=== PATIENT | male | born 1995 | race African-American/Black ===

== ENCOUNTER 2021-01-05 16:11 | Emergency (ER) | payer OTHER, MEDICAID, SELFPAY ==
[2021-01-05 16:33] VITALS: BP 139/81; PULSE 64; RESP 16; TEMP 37.5; O2SAT 100
[2021-01-05] MEDS: LIDOCAINE HCL 1% LOCAL INJ 20 ML VIAL IM (17:18)
[2021-01-05] MEDS: cefTRIAXone 500 MG VIAL IM (17:19)
--- NOTE | 2021-01-05 18:56 | ED.MALEGU ---
HPI - Male Genitourinary General Chief complaint: Urogenital-Male Stated complaint: STD Exposure Time Seen by Provider: 01/05/21 17:02 Source: patient and RN notes reviewed Mode of arrival: ambulatory Limitations: no limitations History of Present Illness HPI Narrative: Patient presents today complaining of possible exposure to gonorrhea. Patient was notified yesterday by a sexual partner that she was positive for gonorrhea. He first had unprotected intercourse with her on December 21, then again a few days ago. He has no symptoms. MD Complaint: possible STD exposure Related Data Allergies Allergy/AdvReac Type Severity Reaction Status Date / Time No Known Allergies Allergy Verified 01/05/21 16:40 Review of Systems Review of Systems: CONSTITUTIONAL: Denies body aches, fever, chills, or sweats. CARDIOVASCULAR: Denies chest pain, palpitations, or edema. RESPIRATORY: Denies cough or dyspnea. GASTROINTESTINAL: Denies abdominal pain, nausea, vomiting, or diarrhea. GENITOURINARY: Denies dysuria or hematuria. SKIN: Denies rash, itching, or wounds. MUSCULOSKELETAL: Denies back pain, joint pain, or myalgia. NEUROLOGIC: Denies headache, numbness, tingling, or weakness. PSYCH: Denies depression or anxiety. PMFSH Comments At time of signature, I have reviewed and agree with nursing past medical, surgical, social and family history unless otherwise noted. Please see nursing chart for further information. There is no relevant family history pertinent to the presenting complaint Exam Narrative: GENERAL: Well-appearing, well-nourished, and in no acute distress. HEAD: Normocephalic, atraumatic. EYES: EOMI. No redness or drainage. Conjunctivae normal. ENT: Mucous membranes pink and moist. NECK: Normal AROM. CHEST: No respiratory distress. : deferred EXTREMITIES: Normal range of motion. No edema. SKIN: Warm, dry, no rash. Capillary refill normal. Normal skin turgor. NEURO: No focal deficits. Alert and oriented x3. Gait steady. PSYCH: Normal affect. No signs of depression or anxiety. Course Vital Signs Vital signs: Vital Signs Temperature 99.5 F 01/05/21 16:33 Pulse Rate 64 01/05/21 16:33 Respiratory Rate 16 01/05/21 16:33 Blood Pressure 139/81 01/05/21 16:33 Pulse Oximetry 100 01/05/21 16:33 Temperature 99.5 F 01/05/21 16:33 Pulse Rate 64 01/05/21 16:33 Respiratory Rate 16 01/05/21 16:33 Blood Pressure 139/81 01/05/21 16:33 Pulse Oximetry 100 01/05/21 16:33 Reviewed. Pt has been instructed to follow up with his PCP regarding his elevated blood pressure today. MDM - Male Genitourinary Differential Diagnosis Differential diagnosis: Likely other (Gonorrhea, chlamydia, trichomonas) Lab Data Labs: Lab Results 01/05/21 Range/Units 16:33 C.trachomatis RNA (TMA) Pending N.gonorrhoeae RNA (TMA) Pending T. vaginalis Amp RNA Pending Critical Care Time Critical Care Time Critical Care Time: No Discharge Plan Discharge Clinical Impression: Contact with and (suspected) exposure to infections with a predominantly sexual mode of transmission Patient Disposition: Home, Self-Care Condition: Stable Instructions: Antibiotic Form, Gonorrhea (ED) Additional Instructions: Your urine sample has been sent off to test for gonorrhea, chlamydia, and trichomonas infections. These tests can take up to 5-7 days to come back. You will be notified by telephone if any of your tests come back positive. You have been treated with Rocephin in urgent care today to cover you for gonorrhea. Prescription for Flagyl and doxycycline has been sent to your pharmacy to cover you for trichomonas and chlamydia. If any of your test come back positive you should need no further treatment. If any of your test come back positive, you will need to notify any partners that you have, and they will need to be tested and treated. If your tests come back negative and you are still experie
== END 2021-01-05 17:40 | disposition home or self-care (01) ==
PROVIDERS: Emergency Provider Nurse Practitioner
DX: Z20.2 Contact with and (suspected) exposure to infections with a predominantly sexual mode of transmission (principal)
CPT/HCPCS: 87491; 87591; 87661; 96372; 99213; G0463; J0696

== ENCOUNTER 2021-07-27 12:54 | Emergency (ER) | payer OTHER, SELFPAY ==
[2021-07-27 13:09] VITALS: BP 137/77; PULSE 64; RESP 16; TEMP 37.2; O2SAT 100
--- NOTE | 2021-07-27 13:24 | ED.DENTAL ---
HPI - Dental/Oral General Chief complaint: Dental/Oral Stated complaint: swelling on left side of jaw Time Seen by Provider: 07/27/21 13:17 Source: patient and RN notes reviewed Mode of arrival: ambulatory Limitations: no limitations History of Present Illness HPI Narrative: Patient presents today complaining of 4-day history of left upper and lower dental pain with lower jaw swelling. Denies fever, shortness of breath, difficulty swallowing. He cannot localize it to tooth that is affected, but is complaining of the entire gumline. Pain is waking him from sleep. Currently rates his pain 9/10 and has been taking Tylenol and using Orajel with short-term relief. He does have an appointment in 5 days at the dentist. MD Complaint: tooth pain Related Data Allergies Allergy/AdvReac Type Severity Reaction Status Date / Time No Known Allergies Allergy Verified 07/27/21 13:12 Review of Systems Review of Systems: CONSTITUTIONAL: Denies body aches, fever, chills, or sweats. EYES: Denies visual changes, redness, or discharge. ENT: Denies rhinorrhea, congestion, sore throat, or otalgia.+ Tooth pain CARDIOVASCULAR: Denies chest pain, palpitations, or edema. RESPIRATORY: Denies cough or dyspnea. GASTROINTESTINAL: Denies abdominal pain, nausea, vomiting, or diarrhea. GENITOURINARY: Denies dysuria or hematuria. SKIN: Denies rash, itching, or wounds. MUSCULOSKELETAL: Denies back pain, joint pain, or myalgia. NEUROLOGIC: Denies headache, numbness, tingling, or weakness. PSYCH: Denies depression or anxiety. PMFSH Comments At time of signature, I have reviewed and agree with nursing past medical, surgical, social and family history unless otherwise noted. Please see nursing chart for further information. There is no relevant family history pertinent to the presenting complaint Exam Narrative: GENERAL: Well-appearing, well-nourished, and in no acute distress. HEAD: Normocephalic, atraumatic. EYES: EOMI. No redness or drainage. Conjunctivae normal. ENT: Mucous membranes pink and moist. Nares clear. No rhinorrhea. TMs normal bilaterally. Throat normal. Uvula midline. Upper and lower gumline does not show any obvious periapical abscesses, erythema, or edema. Tooth #18 is missing the lateral portion. Very mild edema to the left lower jawline. NECK: Normal AROM. Supple. No lymphadenopathy. CHEST: No respiratory distress. Clear to auscultation. HEART: Regular rate and rhythm. No murmur appreciated. Normal peripheral pulses. EXTREMITIES: Normal range of motion. No edema. SKIN: Warm, dry, no rash. Capillary refill normal. Normal skin turgor. NEURO: No focal deficits. Alert and oriented x3. Gait steady. PSYCH: Normal affect. No signs of depression or anxiety. Course Course Level of Care: Express Care Visit Vital Signs Vital signs: Vital Signs Temperature 99 F 07/27/21 13:09 Pulse Rate 64 07/27/21 13:09 Respiratory Rate 16 07/27/21 13:09 Blood Pressure 137/77 07/27/21 13:09 Pulse Oximetry 100 07/27/21 13:09 Temperature 99 F 07/27/21 13:09 Pulse Rate 64 07/27/21 13:09 Respiratory Rate 16 07/27/21 13:09 Blood Pressure 137/77 07/27/21 13:09 Pulse Oximetry 100 07/27/21 13:09 Reviewed. Pt has been instructed to follow up with his PCP regarding his elevated blood pressure today. MDM - Dental/Oral Differential Diagnosis Differential diagnosis: Likely gingival abscess, dental caries, toothache, dental abscess and fracture of tooth Critical Care Time Critical Care Time Critical Care Time: No Discharge Plan Discharge Clinical Impression: Toothache Patient Disposition: Home, Self-Care Condition: Stable Instructions: Antibiotic Form, Dental Abscess (ED) Additional Instructions: Take the amoxicillin as prescribed until gone. Take Tylenol or ibuprofen at home for pain. Follow-up with your dentist as scheduled next week. If you develop shortness of breath, difficulty swallowing, or wors
== END 2021-07-27 13:30 | disposition home or self-care (01) ==
PROVIDERS: Emergency Provider Nurse Practitioner
DX: K08.89 Other specified disorders of teeth and supporting structures (principal)
CPT/HCPCS: 99213; G0463